=== PATIENT | male | born 1960 | race Two or more races ===

== ENCOUNTER 2017-02-15 13:48 | Day surgery (SDC) | payer OTHER ==
[~2017-02-15] VITALS: Ht 175.3 cm; Wt 70.4 kg
[2017-02-15] MEDS ORDERED: PLAVIX (15:52)
[2017-02-15] MEDS ORDERED: METOPROLOL (15:52)
[2017-02-15] MEDS ORDERED: IBUPROFEN (15:53)
[2017-02-15] MEDS ORDERED: ASPIRIN (15:53)
[2017-02-15] MEDS ORDERED: TAMSULOSIN (15:53)
[2017-02-15 15:58] VITALS: Ht 175.3 cm; Wt 70.4 kg
[2017-02-15 18:10] VITALS: BP 112/71; PULSE 61; RESP 16
--- NOTE | 2017-02-15 19:09 | OPPN ---
Date/Time of Note Date/Time of Note DATE: 02/15/17 TIME: 19:05 Proc Note GI Procedure Date 02/15/17 Pre-procedure Diagnosis * CRC screening Post-procedure Diagnosis Impression: * 10 mm lipoma hepatic flexure. Biopsied * Moderate size internal hemorrhoids * Otherwise normal colonoscopy Plan: Follow up as scheduled] High fiber diet Annual hemoccult stool testing [Review pathology] [Screening colonoscopy in 10 years] Procedure Performed: Other (Colonoscopy with biopsies) Surgeon ROBERTA TREVIZO MD Field Pipelines Supervisor none Anesthesia Type: moderate sedation (Versed 4 mg/fentanyl 75 mcg) Tourniquet Time none EBL none Transfusion required none Biopsy 1: Lipoma hepatic flexure Grafts/Implants none Tubes/Drains none Complication(s) none Pt Condition post procedure: stable Disposition: home Indications: other (CRC screening) Procedure Description After informed consent, with the patient/relatives understanding the procedure, its indications and potential risks and complications, including but not limited to: Allergic reaction, bleeding, perforation, infection, and after all pertinent questions were answered to the patient's satisfaction, the patient/ relatives signed the witnessed informed consent. Following this, premedication was administered slowly IV push under careful cardiovascular and respiratory monitoring with pulse [employer], automatic blood pressure, and air defense [employer] senior sergeant. Once the sedative effect was achieved, the patient was placed in the left lateral decubitus position, digital rectal examination was performed. The colonoscope was then introduced and advanced under visual control throughout all segments of the colon including: the rectum, sigmoid, descending colon, splenic flexure, transverse colon, hepatic flexure, ascending colon and finally reaching the cecum which was clearly identified by transillumination, finger indentation and the ileocecal valve. Careful examination of the mucosa of the lower gastrointestinal tract both on insertion as well as withdrawal of the instrument disclosed the following findings: PREPARATION QUALITY: [Adequate], RECTAL EXAM: The anorectal area was visualized examined and digital rectal examination performed with the following findings: No evidence of perirectal disease, no masses. COLONIC MUCOSA: The mucosa of all segments of the colon was carefully examined and showed the following findings: There is a small 10 mm lipoma in the hepatic flexure. Biopsies were obtained. Moderate-sized internal hemorrhoids are present. Otherwise the examined mucosa appears within normal limits. There is no evidence of inflammatory changes, diverticular formation, polyps or other neoplasms, vascular malformation, or any other abnormality. The instrument was then withdrawn, the patient tolerated the procedure well and was transferred out of the Endoscopy Suite awake and in good condition to continue recovery under observation. Copies To: CC: ROBERTA TREVIZO MD, MORDO MD Feb 15, 2017 19:09
[2017-02-15 19:30] VITALS: BP 117/83; PULSE 62; RESP 21
[2017-02-15] MEDS ORDERED: FENTAnyl 50 MCG/ML VIAL ONE (19:33)
[2017-02-15] MEDS ORDERED: MIDAZOLAM 1 MG/ML 2 ML INJ ONE ×2 (19:33)
== END 2017-02-15 20:03 | disposition home or self-care (01) ==
LOC: GIL 13:48
PROVIDERS: ATTEND Internal Medicine Gastroenterology
DX: Z12.11 Encounter for screening for malignant neoplasm of colon (principal); Z87.891 Personal history of nicotine dependence; K64.8 Other hemorrhoids; D17.5 Benign lipomatous neoplasm of intra-abdominal organs
CPT/HCPCS: 45380; 88304; J2250; J3010; Z7610